=== PATIENT | male | born 1950 | race African-American/Black ===

== ENCOUNTER 2017-06-04 11:27 | Emergency (ER) | payer MEDICARE ==
[~2017-06-04] VITALS: Ht 185.4 cm; Wt 77.1 kg
[2017-06-04 11:31] VITALS: BP 141/99
== END 2017-06-04 11:56 | disposition home or self-care (01) ==
LOC: ER 11:28
DX: K02.9 Dental caries, unspecified (principal); K04.7 Periapical abscess without sinus; Z88.0 Allergy status to penicillin
CPT/HCPCS: A4606; Z7610

== ENCOUNTER 2018-07-02 09:51 | Emergency (ER) | payer MEDICARE ==
[~2018-07-02] VITALS: Ht 180.3 cm; Wt 73.9 kg
[2018-07-02 09:55] VITALS: BP 138/90
--- NOTE | 2018-07-02 10:30 | NUR ---
For discharge- Aftercare Instructions given Home ambulatory Stable
== END 2018-07-02 10:33 | disposition home or self-care (01) ==
LOC: ER 09:55
DX: K08.89 Other specified disorders of teeth and supporting structures (principal); Z88.0 Allergy status to penicillin; Z60.2 Problems related to living alone

== ENCOUNTER 2018-09-24 07:17 | Emergency (ER) | payer MEDICARE ==
[~2018-09-24] VITALS: Ht 185.4 cm; Wt 74.8 kg
[2018-09-24 07:23] VITALS: BP 123/74
== END 2018-09-24 08:14 | disposition home or self-care (01) ==
LOC: ER 07:17
DX: K04.7 Periapical abscess without sinus (principal); Z88.0 Allergy status to penicillin; Z60.2 Problems related to living alone

== ENCOUNTER 2018-11-13 09:41 | Emergency (ER) | payer MEDICARE | END 2018-11-13 10:22 | disposition home or self-care (01) | DX: K08.89 Other specified disorders of teeth and supporting structures (principal); Z88.0 Allergy status to penicillin; Z60.2 Problems related to living alone ==

== ENCOUNTER 2018-12-25 12:11 | Emergency (ER) | payer MEDICARE ==
[~2018-12-25] VITALS: Ht 188 cm; Wt 79.4 kg
--- NOTE | 2018-12-25 12:24 | NUR ---
F/C DISCOMFORT, REQUESTING F/C CHANGE. PLACED 2-3 WEEKS AGO. PATIENT A/OX4, NO DSITRESS NOTED, KEPT COMFORTABLE, WAITING FOR MD GRIMES.
[2018-12-25 12:51] LABS: BILIRUBIN,URINE Negative (NEGATIVE); BLOOD, URINE Large Ery/uL (NEGATIVE); COLOR,URINE Yellow (YELLOW); KETONES,URINE Negative (NEGATIVE); LEUKOCYTE ESTERASE ,URINE Trace (NEGATIVE); NITRITE, URINE Negative (NEGATIVE); PH,URINE 5.5 (5.0-8.0); PROTEIN,URINE 30 mg/dl (NEGATIVE); UGLUCOSE Negative (NEGATIVE); UROBILINOGEN,URINE 0.2 EU/dL (0.2)
[2018-12-25 12:52] LABS: APPEARANCE,URINE SLIGHTLY CLOUDY (CLEAR)
[2018-12-25 12:54] LABS: BACTERIA,URINE Few /HPF (None Seen); RBC,URINE 21-50 /HPF (0-2); SQUAMOUS EPITHELIAL CELL,UR None Seen /HPF (None Seen)
[2018-12-25 12:55] LABS: URINE AMORPHOUS URATE Few /HPF (None Seen)
--- NOTE | 2018-12-25 13:20 | NUR ---
KING CATHETER CHANGED, INSERTED 16FR VIA ASEPTIC TECHNIQUE. PATIENT TOLERATED PROCEDURE, UA OBTAINED AND SENT TO LAB. NO DISTRESS NOTED. Patient discharged to home in stable condition. Written and verbal after care instructions given. Patient verbalizes understanding of instruction.
[2018-12-25 13:21] VITALS: BP 137/70
== END 2018-12-25 13:46 | disposition home or self-care (01) ==
LOC: ER 12:15
DX: N39.0 Urinary tract infection, site not specified (principal); N40.0 Benign prostatic hyperplasia without lower urinary tract symptoms; Z88.0 Allergy status to penicillin; Z60.2 Problems related to living alone
CPT/HCPCS: 81000-TC; 87086-TC; 87186-TC

== ENCOUNTER 2018-12-28 10:54 | Emergency (ER) | payer MEDICARE ==
[~2018-12-28] VITALS: Ht 185.4 cm; Wt 74.8 kg
[2018-12-28 10:57] VITALS: BP 134/85
[2018-12-28] MEDS ORDERED: LIDOCAINE 2% JEL UROJET 10 ML MM ONE ×2 (11:17→11:30)
[2018-12-28 12:39] LABS: APPEARANCE,URINE Cloudy (CLEAR); BILIRUBIN,URINE LARGE (NEGATIVE); BLOOD, URINE Large Ery/uL (NEGATIVE); COLOR,URINE Red (YELLOW); KETONES,URINE 15 (NEGATIVE); LEUKOCYTE ESTERASE ,URINE Large (NEGATIVE); NITRITE, URINE Negative (NEGATIVE); PROTEIN,URINE >=300 mg/dl (NEGATIVE); UGLUCOSE Negative (NEGATIVE)
[2018-12-28 12:49] LABS: RBC,URINE TOO NUMEROUS TO COUN /HPF (0-2); WBC,URINE TOO NUMEROUS TO COUN /HPF (0-3)
[2018-12-28 12:50] LABS: BACTERIA,URINE Few /HPF (None Seen); SQUAMOUS EPITHELIAL CELL,UR None Seen /HPF (None Seen)
== END 2018-12-28 13:25 | disposition home or self-care (01) ==
LOC: ER 10:54
DX: N39.0 Urinary tract infection, site not specified (principal); N40.0 Benign prostatic hyperplasia without lower urinary tract symptoms; Z88.0 Allergy status to penicillin; Z60.2 Problems related to living alone
CPT/HCPCS: 51702; 81001; 87086; 99284; J3490; 81000-TC

== ENCOUNTER 2018-12-30 18:24 | Emergency (ER) | payer MEDICARE ==
[~2018-12-30] VITALS: Ht 188 cm; Wt 79.4 kg
[2018-12-30 18:37] VITALS: BP 127/94
--- NOTE | 2018-12-30 18:43 | NUR ---
SEEN AND EXAMINED BY .
[2018-12-30] MEDS ORDERED: LIDOCAINE 2% JEL UROJET 10 ML MM ONE ×2 (18:44→19:00)
--- NOTE | 2018-12-30 19:00 | NUR ---
CATHETER CHANGED. UO COLLECTED 500CC.
--- NOTE | 2018-12-30 19:12 | NUR ---
Patient discharged to home in stable condition. Written and verbal after care instructions given. Patient verbalizes understanding of instruction.
== END 2018-12-30 19:12 | disposition home or self-care (01) ==
LOC: ER 18:35
DX: T83.018A Breakdown (mechanical) of other urinary catheter, initial encounter (principal); N40.0 Benign prostatic hyperplasia without lower urinary tract symptoms; Z88.0 Allergy status to penicillin; Z60.2 Problems related to living alone
CPT/HCPCS: 51702; 99284; J3490